=== PATIENT | male | born 1970 | race Caucasian/White ===

== ENCOUNTER 2021-06-07 08:00 | Outpatient (CLI) | payer OTHER ==
[~2021-06-07 08:00] MED LIST: PERCOCET 5/3251 TAB PO
== END 2021-06-07 08:30 | disposition home or self-care (01) ==
LOC: PPH VACUNA 08:00
DX: Z23 Encounter for immunization (principal)

== ENCOUNTER 2021-06-23 07:00 | Outpatient (CLI) | payer OTHER | END 2021-06-23 07:05 | disposition home or self-care (01) | LOC: PPH VACUNA 07:00 | PROVIDERS: ATTEND Emergency Medicine Pediatric Emergency Medicine | DX: Z23 Encounter for immunization (principal) ==